=== PATIENT | female | born 1990 | race African-American/Black ===

== ENCOUNTER 2018-07-07 15:14 | Emergency (ER) | payer SELFPAY ==
[2018-07-07] MEDS ORDERED: HYDROcodone/Acetaminophen 5/325 mg Tablet ONE (15:52)
[2018-07-07] MEDS ORDERED: Ibuprofen 800 MG TAB ONE (15:52)
[2018-07-07 16:04] LABS: Pregnancy Test - Urine (BHCG) Negative (Negative)
[2018-07-07 16:05] LABS: Pregu Control Background? CLEAR/WHITE (CLR/WHITE); Pregu Control Bar Appear? YES (CONTROL BAR); Specific Gravity 1.029 (1.002-1.036)
--- NOTE | 2018-07-07 18:13 | CT ---
CT ABDOMEN AND PELVIS WITH CONTRAST: 07/07/2018 TECHNIQUE: A spiral CT of the abdomen and pelvis was performed using axial slices, followed by coronal and sagit nirmala reconstructions. IV contrast was used but no oral contrast, by request. FINDINGS: ABDOMEN: A soft tissue nodule is seen in the anterior abdominal wall, in the left lower quadrant. I t is located just anterior to the lower left rectus sheath. It is clearly not a herniation of any ti ssue. It does not appear to be arising from the rectus sheath as much as nearly lying on top of it. There is a little bit of streaking around the nodule. Possibilities might include a small focus of infection or some sort of dermal inclusion cyst. Dermatologic nodules of various varieties are possi ble. It seems to clearly lie in the subcutaneous tissues and not necessarily arise from any underlyi ng structure. The remainder of the scan is fairly unremarkable. The lung bases are clear. The liver, spleen, panc reas, gallbladder, kidneys, adrenal glands, and abdominal aorta all appear normal. There is no diste ntion of bowel to suggest obstruction. There is no free fluid or free air in the upper abdomen. No inflammatory changes are seen around bowel. PELVIS: A little bit of prominence of the adnexal regions, but this would be better assessed with ul trasound. There are no large fluid collections. A moderate amount of fecal material is seen in the colon. IMPRESSION: 1. A 1.9 cm soft tissue nodule in the subcutaneous tissues of the left lower quadrant. See descript ion above. It is not a hernia, and it does not appear to arise from surrounding structures, but is m erely subcutaneous in location. 2. Very slight prominence of the adnexal regions. I understand the patient has had a secti on, so this could be related. If there is truly pelvic pain, then a pelvic ultrasound would be best at assessing this area. POS: HOME
== END 2018-07-07 17:30 | disposition home or self-care (01) ==
LOC: BURERS 15:14
DX: L90.5 Scar conditions and fibrosis of skin (principal)
CPT/HCPCS: 10061; 74177; 81025

== ENCOUNTER 2018-07-09 17:09 | Emergency (ER) | payer SELFPAY | END 2018-07-09 17:50 | disposition home or self-care (01) | LOC: BURERS 17:09 | DX: Z48.817 Encounter for surgical aftercare following surgery on the skin and subcutaneous tissue (principal) | CPT/HCPCS: 99282 ==

== ENCOUNTER 2018-09-23 19:57 | Emergency (ER) | payer SELFPAY ==
[2018-09-23 20:33] LABS: Bilirubin Negative (Negative); Blood, Urine Negative (Negative); Clarity Cloudy (Clear); Glucose, Urine (Dipstick) Negative (Negative); Leukocyte Trace (Negative); Nitrite Positive (Negative); Protein, Urine (Dipstick) 30 mg/dL (Neg-Trace)
[2018-09-23 20:34] LABS: Pregnancy Test - Urine (BHCG) Negative (Negative); Pregu Control Background? CLEAR/WHITE (CLR/WHITE); Pregu Control Bar Appear? YES (CONTROL BAR)
[2018-09-23 20:39] LABS: Bacteria/HPF 4+ HPF (None Seen); Crystals/HPF None Seen HPF (Negative); Hyaline Casts/LPF NONE SEEN LPF (0-3 Hyaline); Other Casts/LPF None Seen LPF (0-3 Hyaline); Oval Fat Bodies/HPF None Seen HPF (None Seen); RBC/HPF None Seen HPF (0-3); Renal Epithelial None Seen HPF (0-3); Sperm/HPF None Seen HPF (None Seen); Squamous Epithelial None Seen HPF (0-3); Transitional Epithelial NONE SEEN HPF (0-3); Trichomonas/HPF None Seen HPF (None Seen); Yeast-All Forms None Seen HPF (None Seen)
== END 2018-09-23 20:53 | disposition home or self-care (01) ==
LOC: BURERS 19:57
DX: N39.0 Urinary tract infection, site not specified (principal); J45.909 Unspecified asthma, uncomplicated; F41.9 Anxiety disorder, unspecified; F32.9 Major depressive disorder, single episode, unspecified
CPT/HCPCS: 81003; 81015; 81025; 99284